=== PATIENT | female | born 1965 | race African-American/Black ===

== ENCOUNTER 2019-09-18 07:39 | Emergency (ER) | payer MEDICAID | END 2019-09-18 08:22 | disposition left against medical advice (07) | LOC: ER 07:48 | DX: Z53.21 Procedure and treatment not carried out due to patient leaving prior to being seen by health care provider (principal) ==

== ENCOUNTER 2019-09-18 07:44 | Emergency (ER) | payer MEDICAID | END 2019-09-18 08:22 | disposition left against medical advice (07) | LOC: ER 07:53 | DX: Z53.21 Procedure and treatment not carried out due to patient leaving prior to being seen by health care provider (principal) ==